=== PATIENT | female | born 1970 | race Two or more races ===

== ENCOUNTER 2017-07-10 12:26 | Day surgery (SDC) | payer OTHER | END 2017-07-10 15:56 | disposition home or self-care (01) | LOC: GIL 12:26 | DX: R19.4 Change in bowel habit (principal); K44.9 Diaphragmatic hernia without obstruction or gangrene; K29.60 Other gastritis without bleeding; K64.8 Other hemorrhoids | CPT/HCPCS: 43239; 84703; 87081 ==